=== PATIENT | female | born 1980 | race Caucasian/White ===

== ENCOUNTER → 2017-06-13 07:08 | Outpatient (CLI) | payer BC, SELFPAY ==
[2017-06-13 10:41] LABS: ALB/GLOB Ratio 1.1 RATIO (0.9-2.4); AST(SGOT) 32 U/L (15-37); Alanine Aminotransfer ALT/SGPT 46 U/L (13-56); Albumin, Serum 3.7 g/dL (3.2-5.0); Alkaline Phosphatase 73 U/L (45-117); Anion Gap 10 (5-15); BUN 15 mg/dL (7-18); BUN/Creat Ratio 15.7 RATIO (10-20); Calcium,Total 8.6 mg/dL (8.5-10.1); Chloride 103 mmol/L (98-107); Cholesterol 168 mg/dL (200); Creatinine, Serum 0.96 mg/dL (0.55-1.02); EST Glomerular Filtration Rate 70 mL/min (>60); Est Glom Filt Rate - Afr Amer 85 mL/min (>60); Globulin 3.4 g/dL (2.2-4.2); Glucose 96 mg/dL (74-106); High Density Lipoprotein 50 mg/dL; Protein, Total 7.1 g/dL (6.4-8.2); Sodium Level 140 mmol/L (136-145); Triglycerides 69 mg/dL; Very Low Density Lipoprotein 14 mg/dL (5-40)
[2017-06-14 10:45] LABS: Alpha Antitrypsin Serum 120 mg/dL (90-200)
== END ==
DX: Z13.6 Encounter for screening for cardiovascular disorders (principal); Z83.49 Family history of other endocrine, nutritional and metabolic diseases
CPT/HCPCS: 36415; 80053; 80061; 82103

== ENCOUNTER 2018-03-25 11:59 | Emergency (ER) | payer BC, SELFPAY ==
[2018-03-25 12:00] VITALS: BP 132/76; PULSE 90; RESP 20; TEMP 36.6; O2SAT 100; BMI 25.3
--- NOTE | 2018-03-25 12:19 | EKG12_ITS ---
Test Reason : CP Blood Pressure : / mmHG Vent. Rate : 089 BPM Atrial Rate : 089 BPM P-R Int : 134 ms QRS Dur : 072 ms QT Int : 368 ms P-R-T Axes : 069 083 058 degrees QTc Int : 447 ms Normal sinus rhythm with sinus arrhythmia Right atrial enlargement Borderline ECG Confirmed by BJ ALBA, TOYA ([id number]), editor in chief newspaper THOMPSON GALLAGHER ([id number]) on 03/27/2018 12:01:41 PM Referred By: STEPH Confirmed By:TOYA LORENZO MD
--- NOTE | 2018-03-25 12:19 | RAD_ITS ---
STUDY: X-RAY CHEST REASON FOR EXAM: Female, 37 years old. Panic attacks. TECHNIQUE: Single AP portable view of the chest. COMPARISON: None. FINDINGS: EKG electrodes are seen. The lungs are clear and expanded. Scattered calcified granulomas. There is no demonstrated pleural abnormality. Normal size heart. Normal mediastinum and fredy. Normal visualized pulmonary arteries. Normal visualized aortic arch and descending thoracic aorta. Normal visualized thoracic spine. Normal visualized ribs, clavicles, and shoulders. There is no demonstrated abnormality of the visualized soft tissue structures of the upper abdomen. RAD/Chest 1 View (Portable) IMPRESSION: Normal x-ray examination of the chest. Electronically Signed: Bhargav Villavicencio MD at 13:02 EST Tel [phone], Service support ,
[2018-03-25 12:46] LABS: Absolute Lymphocyte Count 1.65 X10^3/ul (0.83-4.51); Absolute Neutrophil Count 4.1 X10^3/uL (2.0-7.7); Basophil# 0.01 X10^3/uL; Basophil% 0.1 % (0-1); Eosinophils% 1.5 % (0-5); Hematocrit 45.1 % (37-47); Hemoglobin 15.3 g/dl (12.0-15.0); Lymphocyte # 1.65 X10^3/ul (4.0); Lymphocyte % 24.7 % (19-41); Mean Corp Hgb Conc 33.9 g/gl (32-36); Mean Corpuscular Hgb 31.2 pg (27.0-32.0); Mean Corpuscular Volume 91.9 fL (81-99); Mean Platelet Vol. 11.9 fl (6.2-12.0); Monocyte# 0.79 X10^3/uL; Monocyte% 11.8 % (0-10); Neutrophil # 4.13 X10^3/uL (2.7-7.7); Neutrophil % 61.9 % (47-70); POSITIVE COUNT NO; POSITIVE DIFFERENTIAL NO; POSITIVE MORPHOLOGY NO; Platelet Count 222 K/mm3 (150-450); RBC Distribution Width CV 12.8 % (11.6-14.6); RBC Distribution Width SD 42.7 fl (35.1-43.9); Red Blood Count 4.91 M/mm3 (4.2-5.4); White Blood Count 6.7 K/mm3 (4.4-11.0)
[2018-03-25] MEDS: Aspirin 81 MG TAB.CHEW 324 MG PO (12:47)
[2018-03-25] MEDS: 0.9% Normal Saline 1,000 ML 150 ML IV (12:47)
[2018-03-25 13:04] LABS: Anion Gap 6 (5-15); BUN 13 mg/dL (7-18); BUN/Creat Ratio 14.3 RATIO (10-20); Calcium,Total 9.4 mg/dL (8.5-10.1); Chloride 108 mmol/L (98-107); Creatinine, Serum 0.91 mg/dL (0.55-1.02); EST Glomerular Filtration Rate 74 mL/min (>60); Est Glom Filt Rate - Afr Amer 90 mL/min (>60); Estimated Creatinine Clearance 82.31 ml/min; Glucose 104 mg/dL (74-106); Potassium 3.6 mmol/L (3.5-5.1); Sodium Level 138 mmol/L (136-145)
[2018-03-25 13:09] LABS: D-Dimer Quantitative (DVT/PE) < 0.27 FEU/ug/m (0.27-0.49)
--- NOTE | 2018-03-25 13:26 | ED.VISSUMM ---
- ER Visit Summary Date of Service: 03/25/18 Chief Complaint: [] Chest pressure since Friday History of Present Illness: The patient is a 37 F [] patient has really no past history she indicates on Friday she was exerting herself quite a bit on her exercise bicycle equipment she is developed a sense of chest pressure since that time she spoke with her family physicians and asked him in for evaluation. She has no history of GA PE or DVT she does not smoke, she has no history of high cholesterol or other cardiac risk factors. She indicates resting in the bed she just feels a slight sense of chest discomfort primarily if she moves or turns or takes a deep breath. She did not injure herself in any way other than reports she was breathing very hard during exercise activity and this began during that activity Physical Examination: [] 130/80 pulse ox is 100% on room air rest rate 16, General, no distress resting comfortably HEENT is generally unremarkable The neck is supple no adenopathy Cardiovascular, regular rate and rhythm to palpation of the chest reveals no area of pain but she points to the left parasternal region Lungs, clear bilateral Abdomen, soft nontender Extremities, no clubbing cyanosis or edema Neurologic, awake alert answering questions appropriately moving all 4 extremities Test Results: [] Emergency Department Course and Treatment: [] This rhythm the chest x-ray is unremarkable and the laboratory tests are generally unremarkable d-dimer is negative as is the troponin she has been having some discomfort since Friday, We discussed the differential we discussed inpatient versus outpatient management she prefers outpatient management she will take 2 baby aspirin a day [id number] Tylenol nonsteroidals and follow with her outpatient providers return for change in symptoms Treatment Plan: [] Disposition: [] Home stable declined admission Impression: [] Chest pain since Friday etiology unclear This note was generated with [employer] dictation software. It may contain incorrect words, spelling, and punctuation that were not noted in review of the chart prior to signing ED Disposition - Plan for ED Patient: Chief Complaint: Chest Pain Referrals: Care Physician,No Primary [Primary Care Provider] -
--- NOTE | 2018-03-25 13:29 | ED.DCSUM_ITS ---
- ER Visit Summary Date of Service: 03/25/18 Chief Complaint: [] Chest pressure since Friday History of Present Illness: The patient is a 37 F [] patient has really no past history she indicates on Friday she was exerting herself quite a bit on her exercise bicycle equipment she is developed a sense of chest pressure since that time she spoke with her family physicians and asked him in for evaluation. She has no history of [place] PE or DVT she does not smoke, she has no history of high cholesterol or other cardiac risk factors. She indicates resting in the bed she just feels a slight sense of chest discomfort primarily if she moves or turns or takes a deep breath. She did not injure herself in any way other than reports she was breathing very hard during exercise activity and this began during that activity Physical Examination: [] 130/80 pulse ox is 100% on room air rest rate 16, General, no distress resting comfortably HEENT is generally unremarkable The neck is supple no adenopathy Cardiovascular, regular rate and rhythm to palpation of the chest reveals no area of pain but she points to the left parasternal region Lungs, clear bilateral Abdomen, soft nontender Extremities, no clubbing cyanosis or edema Neurologic, awake alert answering questions appropriately moving all 4 extremities Test Results: [] Emergency Department Course and Treatment: [] This rhythm the chest x-ray is unremarkable and the laboratory tests are generally unremarkable d-dimer is negative as is the troponin she has been having some discomfort since Friday, We discussed the differential we discussed inpatient versus outpatient management she prefers outpatient management she will take 2 baby aspirin a day [id number] Tylenol nonsteroidals and follow with her outpatient providers return for change in symptoms Treatment Plan: [] Disposition: [] Home stable declined admission Impression: [] Chest pain since Friday etiology unclear This note was generated with [employer] dictation software. It may contain incorrect words, spelling, and punctuation that were not noted in review of the chart prior to signing ED Disposition - Plan for ED Patient: Chief Complaint: Chest Pain Referrals: Care Physician,No Primary [Primary Care Provider] -
--- NOTE | 2018-03-25 13:29 | ED.DEP ---
ED Disposition - Plan for ED Patient: Chief Complaint: Chest Pain Instructions: ED Chest Pain Atypical Unkn Cause Referrals: Care Physician,No Primary [Primary Care Provider] - Juan Manuel Stewart DO [STAFF PHYSICIAN] -
[2018-03-25 14:17] VITALS: BP 106/71; PULSE 67; RESP 18; O2SAT 100
== END 2018-03-25 14:19 | disposition home or self-care (01) ==
PROVIDERS: Emergency Provider Emergency Medicine
DX: R07.89 Other chest pain (principal); Z79.899 Other long term (current) drug therapy
CPT/HCPCS: 71045; 80048; 84484; 85025; 85379; 93005; 96360; 96361; 99285; J7030; A4216

== ENCOUNTER → 2018-04-17 06:48 | Outpatient (CLI) | payer OTHER, SELFPAY ==
[2018-03-25 12:00] VITALS: BMI 25.3
--- NOTE | 2018-04-17 06:55 | ECHOD_ITS ---
Reason For Study: Abn EKG Procedure This was a 2D Doppler, Color Flow transthoracic echocardiogram. Exam performed in department. Left Ventricle Normal LV size. Left ventricular systolic function is normal. The estimated ejection fraction is 60 %. Normal diastology for age. No regional wall motion abnormalities noted. Right Ventricle Normal RV size. Normal systolic function. Atria Normal left atrium. Normal right atrium. Mitral Valve Normal mitral valve. Tricuspid Valve Normal tricuspid valve. Aortic Valve Normal aortic valve. Trisinus/trileaflet aortic valve. Pulmonic Valve Normal pulmonic valve. Great Vessels Normal aortic root. The pulmonary artery is normal size. Normal inferior vena cava. Pericardium/Pleural No pericardial effusion. MMode/2D Measurements & Calculations LVIDd: 4.5 cm IVSd: 0.84 cm Ao root diam: 3.0 cm LVIDs: 3.0 cm LVPWd: 0.77 cm RVDd: 3.6 cm FS: 34.2 % LAV(MOD-bp): 37.0 ml LVAd ap4: 26.3 cm2 SV(MOD-sp4): 41.6 ml LAV(MOD-bp) Indexed: 20.0 ml/m2 EDV(MOD-sp4): 68.5 ml LAV(MOD-sp2): 45.5 ml EDV(sp4-el): 70.4 ml LAV(MOD-sp4): 30.0 ml LVAs ap4: 14.3 cm2 ESV(MOD-sp4): 26.9 ml ESV(sp4-el): 25.8 ml EF(MOD-sp4): 60.7 % EF(sp4-el): 63.3 % SV(sp4-el): 44.6 ml LA A4 area: 13.4 cm2 LA dimension(2D): 3.2 cm RA A4 area: 12.0 cm2 Doppler Measurements & Calculations MV E max barak: 93.5 cm/sec Lat Peak E' Barak: 22.2 cm/sec Med Peak E' Barak: 10.6 cm/sec MV A max barak: 60.2 cm/sec E/E' lat: 4.2 E/E' med: 8.8 MV E/A: 1.6 Ao V2 max: 116.8 cm/sec LV V1 max: 107.0 cm/sec PA V2 max: 85.9 cm/sec Ao max P.5 mmHg LV V1 max P.6 mmHg Ao V2 mean: 91.3 cm/sec Ao mean P.6 mmHg Ao V2 VTI: 26.9 cm TR max barak: 206.5 cm/sec TR max P.0 mmHg Interpretation Summary Normal LV size. Left ventricular systolic function is normal. The estimated ejection fraction is 60 %. Normal diastology for age. Structurally normal valves. Ordering Physician: RY Blankenship Referring Physician: Don Davies Performed By: Olga Kidd, MORENITA, RVT
--- NOTE | 2018-04-17 13:26 | STRESSREP ---
Stress Test Report Exercise myocardial perfusion stress test. 37-year-old lady with a history of chest pain. Medications none. Stress protocol: Resting EKG demonstrates normal sinus rhythm with a rate of 62 bpm normal intervals are noted resting blood pressure 118/74 mmHg. The patient exercised according to regular Marbin protocol for a total duration of 12 minutes patient completed stage IV of the Marbin protocol the maximum heart rate attained was 166 bpm which was 90% of the maximum predicted heart rate the maximum workload was 13.4 metabolic equivalents. At rest there were no ST or T wave changes noted suggest ischemia peak exercise upsloping ST changes only were noted with no meet the criteria for ischemia. No clinical angina was noted the test was terminated due to leg fatigue. The resting blood pressure was 118/74 with a peak blood pressure 148/80 mmHg rate pressure product was 24,200. Myocardial perfusion protocol. 10.3 mCi of technetium 99m sestamibi was injected at rest. The patient exercised according to regular Marbin protocol for a total duration of 12 minutes at peak exercise 32.8 mCi of technetium 99m sestamibi was injected stress images were obtained stress and rest images were reconstructed and compared in the short axis vertical long horizontal long axis. Gated images were also obtained Perfusion SPECT analysis: Review of the stress images demonstrate normal uptake of tracer noted in all areas of the myocardium. The resting images similarly demonstrate normal uptake of tracer noted in all areas of the myocardium. No areas of reversibility are noted suggest ischemia no previous infarct is noted. Gated SPECT analysis: The gated ejection fraction is noted to be 76%. Conclusion: Normal exercise myocardial perfusion stress test with no evidence of ischemia at a high workload Excellent functional capacity. Preserved ejection fraction.
== END ==
PROVIDERS: Family Provider Family Medicine; PCP Family Medicine; Referring Provider Nurse Practitioner Family; Visit Provider Nurse Practitioner Family
DX: R07.89 Other chest pain (principal); R94.31 Abnormal electrocardiogram [ECG] [EKG]
CPT/HCPCS: 78452; 93017; 93306; A9500; A4216

== ENCOUNTER → 2018-05-08 08:51 | Outpatient (CLI) | payer OTHER, SELFPAY ==
--- NOTE | 2018-05-08 09:05 | BI_ITS ---
MAMMOGRAPHY - BILATERAL DIAGNOSTIC REASON FOR EXAM: Female, 37 years old. Inferior left breast tenderness. PERTINENT HISTORY: Non-contributory. TECHNIQUE: Digital bilateral breast marco a (3D mammographic acquisition) in the CC and MLO projections. 2-D mediolateral oblique (MLO) and craniocaudad (CC) views of both breasts were obtained. CAD: Full Field Digital Mammography with Computer Added Detection was performed. COMPARISON: None. Baseline examination. FINDINGS: Breast Composition: The breasts are heterogeneously dense, which may obscure small masses. There is a 2.6 cm x 2.8 cm nodular density in the deep inferior medial portion of the left breast. This also evidence of a increased density in the left axillary region. This may represent asymmetrical breast tissue as compared to the right side. Correlation with ultrasound of the left breast is recommended for further evaluation. No other significant abnormalities are identified. BI/DIAG MAMM W/CAD, BILAT IMPRESSION: 2.6 cm x 2.8 cm nodular density in the deep inferior medial portion of the left breast as described. This also evidence of breast asymmetry in the axillary region of the left breast. Correlation with ultrasound is recommended. ASSESSMENT CATEGORY: BIRADS Category 0: Incomplete. Need additional imaging evaluation. A letter regarding these results will be sent to the patient by the facility within 30 days. Approximately 10% of breast cancers are not detected by mammography. A normal mammogram should not delay biopsy of a clinically suspicious abnormality. Electronically Signed: Bhargav Villavicencio MD at 10:36 EST Tel [phone], Service support ,
--- NOTE | 2018-05-08 09:06 | US_ITS ---
STUDY: ULTRASOUND BREAST - LEFT REASON FOR EXAM: Female, 37 years old. Fullness of the left breast. TECHNIQUE: Axial and longitudinal images of the LEFT breast were performed with a high resolution ultrasound transducer. COMPARISON: Comparison is made with prior mammogram done earlier today. FINDINGS: LEFT Breast: Ultrasound of the upper outer quadrant and lower inner quadrant were obtained. There is dense fibroglandular tissue. No solid or cystic mass lesion is seen. Incidental note is made of dilated subareolar ducts. US/Breast Complete Unilateral IMPRESSION: Dense fiber glandular tissue. Mildly dilated subareolar ducts. ASSESSMENT CATEGORY: BIRADS Category 2: Benign. A letter regarding these results will be sent to the patient by the facility within 30 days. Electronically Signed: Bhargav Villavicencio MD at 11:22 EST Tel [phone], Service support ,
== END ==
PROVIDERS: Family Provider Family Medicine; PCP Family Medicine
DX: N64.4 Mastodynia (principal)
CPT/HCPCS: 76641; 77062; 77066; G0279

== ENCOUNTER → 2018-11-20 | Outpatient (CLI) | payer OTHER, SELFPAY ==
[2018-06-25 12:42] VITALS: BMI 25.8
--- NOTE | 2018-11-20 13:56 | US_ITS ---
STUDY: ULTRASOUND BREAST - LEFT REASON FOR EXAM: Female, 37 years old. Pain, follow-up ultrasound TECHNIQUE: Axial and longitudinal images of the LEFT breast were performed with a high resolution ultrasound transducer. COMPARISON: 05/08/2018 FINDINGS: LEFT Breast: Four-quadrant ultrasound of the left breast does not demonstrate a suspicious abnormality. Previous study showed mildly dilated ducts but today's examination shows those to have returned to normalcy. There is no sonographic evidence of solid or cystic mass, architectural distortion or shadowing calcifications. US/Breast Complete Unilateral IMPRESSION: No suspicious sonographic findings ASSESSMENT CATEGORY: BIRADS Category 1: Negative. A letter regarding these results will be sent to the patient by the facility within 30 days. Electronically Signed: Moises Young MD at 7:46 EDT , Service support ,
--- NOTE | 2018-11-20 14:06 | BI_ITS ---
MAMMOGRAPHY - UNILATERAL DIAGNOSTIC: LEFT BREAST REASON FOR EXAM: Female, 37 years old. Asymmetric densities PERTINENT HISTORY: Non-contributory. TECHNIQUE: Digital examination. Mediolateral oblique (MLO) and craniocaudad (CC) views of the breast were obtained, along with 3-D tomograms. CAD: CAD was performed on this study. COMPARISON: 05/08/2018 FINDINGS: Breast Composition: The breasts are heterogeneously dense, which may obscure small masses. Previously noted nodular density deep within the medial portion of the left breast persists but has decreased in size since the previous study. It now measures approximately 1 x 1.5 cm. Again further evaluation of the left breast with ultrasound is recommended to assure no underlying lesion is present. No new suspicious findings. No other significant abnormalities are identified. BI/DIAG MAMM W/CAD, UNILAT IMPRESSION: Further ultrasonographic evaluation recommended, as described above. Recall Side: Left Breast ASSESSMENT CATEGORY: BIRADS Category 0: Incomplete. Need additional imaging evaluation. A letter regarding these results will be sent to the patient by the facility within 30 days. FOLLOW-UP RECOMMENDATION: Ultrasound recommended. (I) Approximately 10% of breast cancers are not detected by mammography. A normal mammogram should not delay biopsy of a clinically suspicious abnormality. Electronically Signed: Moises Young MD at 7:52 EDT , Service support ,
== END | disposition home or self-care (01) ==
LOC: OPUS 13:55
PROVIDERS: Family Provider Family Medicine; PCP Family Medicine; Referring Provider Surgery; Visit Provider Surgery
DX: R92.8 Other abnormal and inconclusive findings on diagnostic imaging of breast (principal)
CPT/HCPCS: 76641; 77061; 77065; G0279

== ENCOUNTER 2019-04-30 16:46 | Emergency (ER) | payer OTHER, SELFPAY ==
[2018-06-25 12:42] VITALS: BMI 25.8
[2019-04-30 16:47] VITALS: BP 132/78; PULSE 94; RESP 16; TEMP 36.6; O2SAT 100; BMI 27.7
--- NOTE | 2019-04-30 17:18 | US_ITS ---
STUDY: VENOUS DOPPLER ULTRASOUND - LEFT LOWER EXTREMITY REASON FOR EXAM: Female, 38 years old. LT CALF PAIN - SINCE LAST NIGHT TECHNIQUE: Ultrasound evaluation of the deep vein system to include smallwood-scale imaging and compression was performed. Smallwood-scale imaging and Doppler sonographic evaluation, including duplex spectral analysis and qualitative color flow sonography, was performed. COMPARISON: None. FINDINGS: Common Femoral Vein: Normal compression, spontaneity and augmentation. Normal color Doppler. Common Femoral Vein/Greater Saphenous Junction: Normal compression. Deep Femoral Vein: Normal compression. Femoral Proximal: Normal compression. Femoral Middle: Normal compression, spontaneity and augmentation. Normal color Doppler. Femoral Distal: Normal compression. Popliteal Vein: Normal compression, spontaneity and augmentation. Normal color Doppler. Posterior Tibial Vein: Normal compression. Peroneal Vein: Normal compression. There is no demonstrated deep venous thrombosis. US/Venous Duplex Imag/Limited/Uni IMPRESSION: No demonstrated DVT of the left lower extremity. Electronically Signed: Moises Cannon MD at 18:07 EST , Service support ,
--- NOTE | 2019-04-30 17:56 | ED.VISSUMM ---
- ER Visit Summary Date of Service: 04/30/19 Chief Complaint: [Pain in left calf] History of Present Illness: The patient is a 38 F [close to the emergency department with pain in her left calf that started yesterday. Patient denies any trauma. Patient states she is been more immobile over the last 6 days or so as she has had the flu and has not been real active. Patient denies any trauma to her leg. Patient states she has a friend that is a nurse when she discussed her symptoms with them and was concerned about a blood clot in her leg. Patient has no history of PE or DVT. She denies recent travel or surgery. Patient denies any chest pain or shortness of breath D ordinary.] Physical Examination: [HEENT-PERRLA, EOMI. Cranial nerves II through XII grossly intact. TMs clear. Mucous membranes moist. No adenopathy. Cardiovascular-regular rate and rhythm without murmur or ectopy Lungs-clear to auscultation, chest wall stable without crepitus or subcu emphysema Abdomen-normoactive bowel sounds, soft, nontender, no rebound or rigidity, no peritoneal signs. Extremities-intact ?4, normal range of motion, normal pulses, atraumatic. Left calf-patient has tenderness palpation. Positive Homans sign. There is no edema. There is no ropes or cords palpated. She is neurovascular intact distally.] Test Results: [Venous duplex of the left lower extremity obtained was negative for DVT] Emergency Department Course and Treatment: [] Treatment Plan: [Patient advised to use ibuprofen for discomfort. Patient to follow-up with primary care physician in 5 to 7 days. Patient to return if chest pain, shortness of breath, or conditions worsen anyway.] Disposition: [Discharged home in stable condition.] Impression: [Calf strain] This note was generated with [employer] software. It may contain incorrect words, spelling, and punctuation that were not noted in review of the chart prior to signing ED Disposition - Plan for ED Patient: Referrals: Hermilo Davies MD [Primary Care Provider] -
--- NOTE | 2019-04-30 17:58 | ED.DEP ---
ED Disposition - Plan for ED Patient: Instructions: MUSCLE STRAIN, Extremity Referrals: Hermilo Davies MD [Primary Care Provider] - 5-7 Days
--- NOTE | 2019-04-30 18:06 | ED.RN ---
DISCHARGE INSTRUCTIONS GIVEN TO AND REVIEWED WITH PATIENT, PATIENT DENIES QUESTIONS OR CONCERNS AND VOICES UNDERSTANDING OF DISCHARGE INSTRUCTIONS. PT AMBULATES OUT OF ROOM WITHOUT DIFFICULTY.
== END 2019-04-30 18:07 | disposition home or self-care (01) ==
LOC: ED 17:49
PROVIDERS: Emergency Provider Emergency Medicine; Family Provider Family Medicine; PCP Family Medicine
DX: S86.112A Strain of other muscle(s) and tendon(s) of posterior muscle group at lower leg level, left leg, initial encounter (principal); X58.XXXA Exposure to other specified factors, initial encounter; Y93.9 Activity, unspecified
CPT/HCPCS: 93971; 99282

== ENCOUNTER → 2019-08-30 07:36 | Outpatient (CLI) | payer OTHER, SELFPAY ==
[2019-08-30 10:29] LABS: Free T3 2.7 pg/mL (2.18-3.98); T4 Free Direct 0.87 ng/dL (0.76-1.46); Thyroid Stim Hormone (TSH) 2.15 uIU/mL (0.358-3.74)
[2019-08-31 23:51] LABS: Anti-Thyroglobulin AB < 1.0 IU/mL (0.0-0.9); Thyroglobulin, Serum Qt. 9.1 ng/mL (1.5-38.5); Thyroid Peroxidase AB < 9 IU/mL (0-34)
[2019-09-01 14:08] LABS: Clam <0.10 kU/L (Class 0); Codfish <0.10 kU/L (Class 0); Corn <0.10 kU/L (Class 0); Egg, White <0.10 kU/L (Class 0); Milk (Cow) <0.10 kU/L (Class 0); Peanut <0.10 kU/L (Class 0); SCALLOP <0.10 kU/L (Class 0); Shrimp <0.10 kU/L (Class 0); Soybean <0.10 kU/L (Class 0); Walnut, (Food) <0.10 kU/L (Class 0); Wheat <0.10 kU/L (Class 0)
[2019-09-01 14:33] LABS: SESAME SEED <0.10 kU/L (Class 0)
== END ==
PROVIDERS: Otolaryngology Otolaryngology/Facial Plastic Surgery; PCP Family Medicine; Referring Provider Family Medicine; Visit Provider Family Medicine
DX: Z13.29 Encounter for screening for other suspected endocrine disorder (principal); T78.40XA Allergy, unspecified, initial encounter
CPT/HCPCS: 36415; 84432; 84439; 84443; 84481; 86003; 86376; 86800

== ENCOUNTER → 2020-01-03 08:51 | Outpatient (CLI) | payer OTHER, SELFPAY ==
--- NOTE | 2020-01-03 08:54 | US_ITS ---
STUDY: ULTRASOUND BREAST - LEFT REASON FOR EXAM: Female, 39 years old. Abnormal screening mammogram. TECHNIQUE: Axial and longitudinal images of the LEFT breast were performed with a high resolution ultrasound transducer. # OF IMAGES: 49 COMPARISON: Comparison is made with prior mammogram done earlier in the day as well as prior ultrasound left breast dated 11/20/2018. FINDINGS: LEFT Breast: Stable examination demonstrating dense breast tissue throughout the left breast. No sonographic abnormality is seen. US/Breast Complete Unilateral IMPRESSION: No sonographic abnormality is seen. ASSESSMENT CATEGORY: BIRADS Category 1: Negative. A letter regarding these results will be sent to the patient by the facility within 30 days. Electronically Signed: Bhargav Villavicencio, at 14:44 EDT , Service support ,
--- NOTE | 2020-01-03 08:54 | BI_ITS ---
MAMMOGRAPHY - BILATERAL DIAGNOSTIC REASON FOR EXAM: Female, 39 years old. Left breast tenderness. PERTINENT HISTORY: Non-contributory. TECHNIQUE: Digital bilateral breast marco a (3D mammographic acquisition) in the CC and MLO projections. 2-D mediolateral oblique (MLO) and craniocaudad (CC) views of both breasts were obtained. CAD: Full Field Digital Mammography with Computer Added Detection was performed. COMPARISON: Comparison is made with prior study dated 11/20/2018 and 05/08/2018. FINDINGS: Breast Composition: The breasts are extremely dense, which lowers the sensitivity of mammography. There are no dominant masses or suspicious calcifications. Stable asymmetry of breast tissue were more breast tissue is seen in the axillary region of the left breast as well as along the deep inferior medial aspect of the left breast. No other significant abnormalities are identified. There has been no significant change since the prior study. BI/DIAG MAMM W/CAD, BILAT IMPRESSION: Stable bilateral diagnostic mammogram. Correlation with ultrasound of the left breast is recommended for further evaluation. ASSESSMENT CATEGORY: BIRADS Category 0: Incomplete. Need additional imaging evaluation. A letter regarding these results will be sent to the patient by the facility within 30 days. Approximately 10% of breast cancers are not detected by mammography. A normal mammogram should not delay biopsy of a clinically suspicious abnormality. Electronically Signed: Bhargav Villavicencio, at 10:18 EDT , Service support ,
== END ==
PROVIDERS: PCP Family Medicine; Referring Provider Surgery; Visit Provider Surgery
DX: R92.8 Other abnormal and inconclusive findings on diagnostic imaging of breast (principal); Z98.890 Other specified postprocedural states
CPT/HCPCS: 76641; 77062; 77066; G0279

== ENCOUNTER 2021-05-15 07:23 | Outpatient (CLI) | payer OTHER, SELFPAY ==
[2021-05-15 10:10] LABS: Absolute Lymphocyte Count 1.98 X10^3/uL (0.83-4.51); Absolute Neutrophil Count 4.2 X10^3/uL (2.0-7.7); Basophil# 0.03 X10^3/uL; Basophil% 0.4 % (0-1); Eosinophil# 0.23 X10^3/uL; Eosinophils% 3.2 % (0-5); Hematocrit 40.5 % (37-47); Hemoglobin 13.7 g/dL (12.0-15.0); Lymphocyte # 1.98 X10^3/ul (0.83-4.51); Lymphocyte % 27.9 % (19-41); Mean Corp Hgb Conc 33.8 g/dL (32-36); Mean Corpuscular Hgb 30.5 pg (27.0-32.0); Mean Corpuscular Volume 90.2 fL (81-99); Mean Platelet Vol. 11.2 fl (6.2-12.0); Monocyte# 0.67 X10^3/uL; Monocyte% 9.4 % (0-10); NRBC Flagged by Analyzer 0 % (0-5); Neutrophil # 4.16 X10^3/uL (2.7-7.7); Neutrophil % 58.8 % (47-70); Platelet Count 298 K/mm3 (150-450); RBC Distribution Width CV 12.8 % (11.6-14.6); RBC Distribution Width SD 41.9 fl (35.1-43.9); Red Blood Count 4.49 M/mm3 (4.2-5.4); White Blood Count 7.1 K/mm3 (4.4-11.0)
[2021-05-15 10:25] LABS: Progesterone Level 10.46 ng/mL (See Comment); Vitamin B12 649 pg/mL (211-911); Vitamin D,25 Hydroxy 31.6 ng/mL
[2021-05-15 11:48] LABS: AST(SGOT) 18 U/L (15-37); Alanine Aminotransfer ALT/SGPT 38 U/L (13-56); Albumin, Serum 3.5 g/dL (3.2-5.0); Alkaline Phosphatase 74 U/L (45-117); Anion Gap 9 (5-15); BUN 10 mg/dL (7-18); BUN/Creat Ratio 11.3 RATIO (10-20); Calcium,Total 8.8 mg/dL (8.5-10.1); Chloride 104 mmol/L (98-107); Cholesterol 199 mg/dL (200); Creatinine, Serum 0.88 mg/dL (0.55-1.02); EST Glomerular Filtration Rate 75 mL/min (>60); Est Glom Filt Rate - Afr Amer 91 mL/min (>60); Estradiol 115.4 pg/mL; Follicle Stimulating Hormone 1.9 mIU/mL; Globulin 3.6 g/dL (2.2-4.2); Glucose 82 mg/dL (74-106); High Density Lipoprotein 66 mg/dL; Luteinizing Hormone 0.8 mIU/mL; Protein, Total 7.1 g/dL (6.4-8.2); Sodium Level 141 mmol/L (136-145); Thyroid Stim Hormone (TSH) 1.52 uIU/mL (0.358-3.74); Triglycerides 56 mg/dL; Very Low Density Lipoprotein 11 mg/dL (5-40)
== END 2021-05-15 23:59 | disposition short-term general hospital (02) ==
LOC: MTLAB 07:25
PROVIDERS: PCP Family Medicine; Referring Provider Family Medicine; Visit Provider Family Medicine
DX: Z00.00 Encounter for general adult medical examination without abnormal findings (principal)
CPT/HCPCS: 36415; 80053; 80061; 82306; 82533; 82607; 82670; 83001; 83002; 84144; 84443; 85025

== ENCOUNTER 2021-05-16 10:11 | Outpatient (CLI) | payer OTHER, SELFPAY ==
[2021-05-21 20:30] LABS: Fats, Neutral Normal (.); Fats, Total Normal (.)
== END 2021-05-16 23:59 | disposition short-term general hospital (02) ==
PROVIDERS: PCP Family Medicine; Referring Provider Family Medicine; Visit Provider Family Medicine
DX: R14.0 Abdominal distension (gaseous) (principal); R19.7 Diarrhea, unspecified
CPT/HCPCS: 82274; 82705; 87177; 87209; 87329; 87493; 87506

== ENCOUNTER → 2021-11-28 | Outpatient (CLI) | payer OTHER, SELFPAY ==
--- NOTE | 2021-11-28 08:25 | BI_ITS ---
MAMMOGRAPHY - BILATERAL SCREENING REASON FOR EXAM: Female, 40 years old. Routine annual screening examination. PERTINENT HISTORY: Non-contributory. TECHNIQUE: Digital bilateral breast ernie (3D mammographic acquisition) in the CC and MLO projections. 2-D mediolateral oblique (MLO) and craniocaudad (CC) views of both breasts were obtained. CAD: Full Field Digital Mammography with Computer Added Detection was performed. COMPARISON: Comparison is made with prior study dated 01/03/2020 and 05/08/2018. FINDINGS: Breast Composition: The breasts are extremely dense, which lowers the sensitivity of mammography. There are no dominant masses or suspicious calcifications. Stable asymmetry of breast tissue but more breast tissue is seen in the axillary region on the left breast as compared to 6. No other significant abnormalities are identified. There has been no significant change since the prior study. BI/SCRN MAMM (CAD)W/ERNIE BILAT IMPRESSION: Stable bilateral screening mammogram. Yearly follow-up mammogram recommended. (A) ASSESSMENT CATEGORY: BIRADS Category 2: Benign. A letter regarding these results will be sent to the patient by the facility within 30 days. Approximately 10% of breast cancers are not detected by mammography. A normal mammogram should not delay biopsy of a clinically suspicious abnormality. [id number] Electronically Signed: Bhargav Villavicencio MD at 9:31 EDT ,
== END | disposition home or self-care (01) ==
LOC: OPBI 08:24
PROVIDERS: PCP Family Medicine; Visit Provider Obstetrics & Gynecology
DX: Z12.31 Encounter for screening mammogram for malignant neoplasm of breast (principal)
CPT/HCPCS: 77063; 77067

== ENCOUNTER 2023-09-09 19:57 | Emergency (ER) | payer SELFPAY ==
[2023-09-09 19:59] VITALS: BP 141/94; PULSE 85; RESP 18; TEMP 36.3; O2SAT 100; BMI 28.8
[2023-09-09 20:53] LABS: Bacteria 0 SEEN /hpf (None Seen); Mucous, Urine 0 SEEN /hpf (<or=2+); Red Blood Cells-Urine 0 SEEN /hpf (0-5); White Blood Cells 0 SEEN /hpf (0-5)
[2023-09-09 20:56] LABS: Absolute Lymphocyte Count 2.13 X10^3/uL (0.83-4.51); Absolute Neutrophil Count 5.7 X10^3/uL (2.0-7.7); Basophil# 0.02 X10^3/uL; Basophil% 0.2 % (0-1); Eosinophil# 0.09 X10^3/uL; Hematocrit 38.6 % (37-47); Hemoglobin 13.4 g/dL (12.0-15.0); Lymphocyte # 2.13 X10^3/ul (0.83-4.51); Lymphocyte % 24.5 % (19-41); Mean Corp Hgb Conc 34.7 g/dL (32-36); Mean Corpuscular Hgb 29.7 pg (27.0-32.0); Mean Corpuscular Volume 85.6 fL (81-99); Mean Platelet Vol. 10.7 fl (6.2-12.0); Monocyte# 0.76 X10^3/uL; Monocyte% 8.7 % (0-10); NRBC Flagged by Analyzer 0 % (0-5); Neutrophil # 5.66 X10^3/uL (2.7-7.7); Neutrophil % 65.3 % (47-70); Platelet Count 246 K/mm3 (150-450); RBC Distribution Width CV 12.4 % (11.6-14.6); RBC Distribution Width SD 38.8 fl (35.1-43.9); Red Blood Count 4.51 M/mm3 (4.2-5.4); White Blood Count 8.7 K/mm3 (4.4-11.0)
[2023-09-09 20:56] LABS: Color, Urine Yellow (Yellow); Glucose, Dipstick Normal (Normal); Ketone-Dipstick 15 mg/dl (Negative); Leukocyte Esterase-Dipstick Negative /ul (Negative); Nitrite-Dipstick Negative (Negative); Occult Blood-Urine Negative /ul (Negative); Protein-Dipstick Negative (Negative); Urine Bilirubin Dipstick Negative (Negative); Urine Clarity Sl. Cloudy (Clear); Urine Urobilinogen Normal (Normal)
[2023-09-09 20:59] LABS: Internal QC Validated? YES +Cl - CLEAR BKGD; Pregnancy, Urine Negative Negative
[2023-09-09] MEDS: 0.9% Normal Saline (1000mL) 1,000 ML 1000 ML IV (21:00)
[2023-09-09 21:07] LABS: Amorphous Sediment 1+ PHOS; Squamous Epithelial Cells - UA 0-5 SEEN /hpf (5-10)
[2023-09-09 21:14] LABS: ALB/GLOB Ratio 1.2 RATIO (0.9-2.4); AST(SGOT) 14 U/L (15-37); Alanine Aminotransfer ALT/SGPT 25 U/L (13-56); Albumin, Serum 3.6 g/dL (3.2-5.0); Alkaline Phosphatase 59 U/L (45-117); Amylase 39 U/L (25-115); Anion Gap 7 (5-15); BUN 9 mg/dL (7-18); Chloride 108 mmol/L (98-107); EST Glomerular Filtration Rate 73 mL/min (>60); Est Glom Filt Rate - Afr Amer 88 mL/min (>60); Estimated Creatinine Clearance 93.46 ml/min; Globulin 3.1 g/dL (2.2-4.2); Glucose 111 mg/dL (74-106); Lipase 17 U/L (13-75); Potassium 3.1 mmol/L (3.5-5.1); Protein, Total 6.7 g/dL (6.4-8.2); Sodium Level 137 mmol/L (136-145)
[2023-09-09 21:58] VITALS: BP 145/87; PULSE 81; RESP 14; O2SAT 98
--- NOTE | 2023-09-09 22:53 | EDS_ITS ---
HPI History of Present Illness Chief Complaint: Abd Pain [facility] Medical History (Updated 06/25/18 @ 12:40 by Radha Brown) Anxiety Asthma Home Medications alprazolam 0.5 mg tablet 0.5 mg PO DAILY 03/27/17 [History Last Taken Unknown] bupropion HCl 300 mg 24 hr tablet, extended release 300 mg PO DAILY 03/27/17 [History Last Taken Unknown] cetirizine 5 mg-pseudoephedrine ER 120 mg tablet,extended release,12hr 1 tab PO DAILY 03/25/18 [History Last Taken Unknown] cholecalciferol (vitamin D3) 25 mcg (1,000 unit) tablet 1,000 meq PO DAILY 04/30/19 [History Last Taken Unknown] Allergy/AdvReac Type Severity Reaction Status Date / Time tramadol [From Ultram] AdvReac Mild chest Verified 09/09/23 19:59 tightness, SOB Family History (Updated 06/25/18 @ 12:41 by Radha Brown) Mother Hypertension Sister Lupus Father Cancer skin Surgical History (Updated 06/25/18 @ 12:40 by Radha Brown) History of section Social History (Updated 06/25/18 @ 13:[address] Jaime Hearn MD) Smoking Status: Unknown if ever smoked EXAM Physical Exam Const Vital Signs: 09/09/23 19:59 09/09/23 21:58 09/09/23 22:58 Temperature 97.3 F L Temperature Source Temporal Pulse Rate 85 81 73 Respiratory Rate 18 14 18 Blood Pressure 141/94 H 145/87 H 107/71 Blood Pressure Mean 109 106 83 Pulse Ox 100 98 100 Oxygen Delivery Method Room Air Room Air 09/09/23 23:21 Temperature 97.5 F L Temperature Source Pulse Rate 82 Respiratory Rate 16 Blood Pressure 136/76 H Blood Pressure Mean 96 Pulse Ox 99 Oxygen Delivery Method MDM MDM MDM Narrative Medical decision making narrative: HISTORY OF PRESENT ILLNESS: 42-year-old female presents with abdominal pain. She notes 2 months of bloating followed by several weeks of constipation. She noted 2 weeks ago she started new workout program she was doing pelvic thrusts when she noticed after she de veloped abdominal pain that is 3/10. Nonradiating is located in the right lower quadrant. She follows her primary care physician who ordered an outpatient CT scan. After CT scan she was noted to come to the ED because they found intussusception. She denies any vomiting, last bowel was 2 days ago. No urinary complaints. No history abdominal surgeries REVIEW OF SYSTEMS: Pertinent positives: Abdominal pain Pertinent negatives: Fever, vomiting, chest pain, shortness of breath, urinary complaints, vaginal bleeding or discharge, constipation and diarrhea PHYSICAL EXAM: Nursing triage notes reviewed, Vital signs reviewed Constitutional: please see [facility] HENT: MMM Eyes: Pupils equal round and reactive to light, Extraocular muscles intact Neck: No stridor, no JVD, full neck ROM Lungs: Clear to auscultation, No wheezing or rales. No increased work of breathing, no conversational dyspnea, no accessory muscle use, no nasal flaring. No respiratory distress noted Heart: Regular rate and rhythm, No murmurs, No rubs and No gallops, 2+ distal pulses (radial, femoral, posterior tibial) in all extremities Abdomen: Soft, there is no tenderness, rigidity, rebound or guarding, no obvious peritoneal signs, no palpable pulsatile abdominal masses, no auscultated abdominal bruit : No CVAT Extremities: No edema Neuro: No focal neurological deficits, cranial nerves II through XII intact, 5/5 strength in all extremities. Intact sensation to light touch in all extremities, 2+ reflexes bilateral patella tendons. Normal gait. No ataxia. Skin: No rash or lesions noted MEDICAL DECISION MAKING: Chief Complaint: Concern for intussusception External records reviewed: Prior imaging reviewed: CT scan from today shows evidence of intussusception Factors affecting care: none Social determinants of health: none History obtained from others: none Consults: General surgery (Dr. Beebe), he recommended for repeat CT scan with oral contrast. [facility] Narrative: Patient was hemodynamically stable, afebrile and nontoxic-appearing. Exam was benign with no peritoneal signs. The patient did not look toxic she was in no distress. She had no tenderness on my abdominal exam I considered the following differential diagnosis: Intussusception, endorgan hypoperfusion, systemic inflammation ALL IMAGES (IF OBTAINED) HAVE BEEN PERSONALLY REVIEWED AND INTERPRETED BY MYSELF. CBC without leukocytosis, severe anemia, no thrombocytopenia. BMP with mild hypokalemia otherwise no evidence of metabolic acidosis, endorgan hypoperfusion or acute kidney injury LFTs show no evidence of hepatobiliary pathology. Lipase is wnl indicating no pancreatic inflammation. Urinalysis shows no evidence of urinary inflammation suggestive of UTI Urine test is negative Repeat abdominal exam remained benign. Given lack of concerning symptoms for intussusception, bowel obstruction or perforation. I suspect the imaging findings secondary to an imaging artifact due to peristalsis. There is no signs of GI ischemia with no white count, no elevation anion gap, benign exam, no fever and no tachycardia. I offered the patient a repeat CT scan to definitively rule out intussusception per general surgery recommendations however she stated she would not like to undergo repeat imaging due to risk of radiation and contrast-induced nephropathy. She was alert and orient x 3 had capacity make her medical decisions and chose to be discharged home with close PCP follow-up and strict return precautions. The patient and/or family, caregivers express understanding. The patient and/or family, caregivers agrees with the plan. Shared decision making: I will have a discussion with the patient and or visitors regarding risk/benefits of further testing or admission. They will be made aware of of the risk/benefits inherent in this decision they will be given the opportunity to voice understanding. Total critical care time today provided was at least 0 minutes. This excludes separately billable procedures. Critical care time (if documented) is secondary to the patient having high probability of clinically significant/life threatening deterioration in the patient's condition which required my urgent intervention. Impression: 1. Abdominal pain 2. Hypokalemia 3. Evaluation of abnormal imaging finding Dispo: Discharge home This note was generated with [employer] dictation software. It may contain incorrect words, spelling, and punctuation that were not noted in review of the chart prior to signing. Lab Data Labs: Laboratory Results - last 24 hr 09/09/23 09/09/23 20:40 20:45 WBC 8.7 RBC 4.51 Hgb 13.4 Hct 38.6 MCV 85.6 MCH 29.7 MCHC 34.7 RDW Std Deviation 38.8 RDW Coeff of Emelia 12.4 Plt Count 246 MPV 10.7 Immature Gran % (Auto) 0.300 Neut % (Auto) 65.3 Lymph % (Auto) 24.5 [place] % (Auto) 8.7 Eos % (Auto) 1.0 Baso % (Auto) 0.2 Absolute Neuts (auto) 5.7 Absolute Lymphs (auto) 2.13 Nucleated RBC % 0 Sodium 137 Potassium 3.1 L Chloride 108 H Carbon Dioxide 22.0 Anion Gap 7 BUN 9 Creatinine 0.90 Estim Creat Clear Calc 93.46 Est GFR (MDRD) Af Amer 88 Est GFR (MDRD) Non-Af 73 BUN/Creatinine Ratio 10.0 Glucose 111 H Calcium 9.0 Total Bilirubin 0.80 AST 14 L ALT 25 Alkaline Phosphatase 59 Total Protein 6.7 Albumin 3.6 Globulin 3.1 Albumin/Globulin Ratio 1.2 Amylase 39 Lipase 17 Urine Color Yellow Urine Clarity Sl. Cloudy Urine pH 8.0 Ur Specific [place] 1.010 Urine Protein Negative Urine Glucose (UA) Normal Urine Ketones 15 H Urine Occult Blood Negative Urine Nitrite Negative Urine Bilirubin Negative Urine Urobilinogen Normal Ur Leukocyte Esterase Negative Urine RBC 0 SEEN Urine WBC 0 SEEN Ur Squamous Epith Cells 0-5 SEEN Amorphous Sediment 1+ PHOS Urine Bacteria 0 SEEN Urine Mucus 0 SEEN Urine Test Negative Discharge Plan Triage Chief Complaint: Abd Pain Other Complaint: Abn Labs ED Provider: Kevan Garcia Dx/Rx/DC Orders Instructions: Intussusception Ch Dc Prescriptions: No Action alprazolam 0.5 MG tablet 0.5 mg PO DAILY Patient Comments: TAKE 1 TABLET BY MOUTH EVERY DAY NEEDED FOR ANXIETY, NEEDED ONLY bupropion HCl 300 MG tablet extended release 24 hr 300 mg PO DAILY cetirizine-pseudoephedrine 1 EACH tablet extended release 12 hr 1 tab PO DAILY cholecalciferol (vitamin D3) 1,000 UNIT tablet 1,000 meq PO DAILY Primary Care Provider: Adilson Miller Referrals: Adilson Miller PA [Primary Care Provider] - Activity Restrictions/Additional Instructions: Thank you for trusting us with your care today! I do not think you are suffering from a life-threatening abdominal emergency. I suspect your imaging finding was related to peristalsis (normal movement of your bowel). I suspect your pain is secondary to musculoskeletal strain from st arting new workout routine. Please take Tylenol (2 pills, 650 mg), ibuprofen (2 pills, 400 mg) every 6 hours as needed for pain and fever control. I recommend augmenting her workout routines to decrease load on your abdominal musculature. Please return to the emergency department if your symptoms change or worsen. Specifically if you develop vomiting, fever, severe pain, no bowel movement. Please follow with your primary care physician for further outpatient evaluation and management. Disposition Disposition: Home, Self Care Discharge Date/Time: 09/09/23 23:22
[2023-09-09 22:58] VITALS: BP 107/71; PULSE 73; RESP 18; O2SAT 100
[2023-09-09 23:21] VITALS: BP 136/76; PULSE 82; RESP 16; TEMP 36.4; O2SAT 99
== END 2023-09-09 23:22 | disposition home or self-care (01) ==
PROVIDERS: Emergency Provider Emergency Medicine; PCP Physician Assistant; Visit Provider Emergency Medicine
DX: R10.9 Unspecified abdominal pain (principal); E87.6 Hypokalemia; J45.909 Unspecified asthma, uncomplicated
CPT/HCPCS: 80053; 81001; 81025; 82150; 83690; 85025; 96360; 99284; J7030; A4216

== ENCOUNTER → 2023-09-09 | Outpatient (CLI) | payer SELFPAY ==
--- NOTE | 2023-09-09 17:41 | CT_ITS ---
We are attempting to reach an attending provider to discuss findings. An addendum with communication details will be sent when the communication is complete. STUDY: CT ABDOMEN AND PELVIS WITH CONTRAST REASON FOR EXAM: Female, 42 years old. RLQ PAIN RADIATION DOSAGE (If Supplied By Facility): CTDIvol = ( 15.47 ) mGy, DLP = ( 843.27 ) mGycm TECHNIQUE: Transaxial images were obtained from the dome of the diaphragm to the symphysis pubis without oral contrast. Oral and amp; IV Gastrografin and amp; 100mL Isovue-370 was administered. Sagittal and coronal images were reconstructed. Individualized dose optimization techniques were used for this CT. COMPARISON: None. FINDINGS: The visualized lung bases are unremarkable. The visualized portions of the heart are within normal limits. Normal liver. Normal gallbladder and extrahepatic biliary system. Normal spleen. Normal pancreas. Normal bilateral adrenal glands. Normal right kidney. Normal left kidney. Normal visualized stomach. There is suspicion for an intussusception in the right mid abdominal region, image 52 series 2 and series 602. Normal colon. The appendix is not visualized. Normal abdominal aorta. Normal inferior vena cava. Normal retroperitoneum. Normal urinary bladder. 1.5 cm left ovarian cystic nodule. Normal abdominal wall. Normal osseous structures. CT/Abdomen/Pelvis WITH Contrast IMPRESSION: There is suspicion for an intussusception in the right mid abdominal region. Small left ovarian cystic nodule. Electronically Signed: Christiano Shields DO at 19:45 EDT ,
== END | disposition home or self-care (01) ==
PROVIDERS: PCP Family Medicine; Referring Provider Physician Assistant; Visit Provider Physician Assistant
DX: R10.31 Right lower quadrant pain (principal)
CPT/HCPCS: 74177

== ENCOUNTER → 2024-07-28 | Outpatient (CLI) | payer BC, SELFPAY ==
[2024-07-28 10:46] LABS: Hemoglobin 14.2 g/dL (12.0-15.0); Mean Corp Hgb Conc 33.8 g/dL (32-36); Mean Corpuscular Hgb 30.3 pg (27.0-32.0); Mean Corpuscular Volume 89.6 fL (81-99); Mean Platelet Vol. 11.2 fl (6.2-12.0); Platelet Count 339 K/mm3 (150-450); RBC Distribution Width CV 13.2 % (11.6-14.6); RBC Distribution Width SD 43.5 fl (35.1-43.9); Red Blood Count 4.69 M/mm3 (4.2-5.4); White Blood Count 7.9 K/mm3 (4.4-11.0)
[2024-07-28 11:36] LABS: ALB/GLOB Ratio 1.6 RATIO (0.9-2.4); AST(SGOT) 28 U/L (<=31); Alanine Aminotransfer ALT/SGPT 27 U/L (<=34); Albumin, Serum 4.3 g/dL (3.5-5.0); Alkaline Phosphatase 77 U/L (35-104); Anion Gap 12 (5-15); BUN 7 mg/dL (4-19); BUN/Creat Ratio 7.3 RATIO (10-20); Calcium,Total 9.5 mg/dL (7.6-11.0); Carbon Dioxide 24.1 mmol/L (21.0-32.0); Chloride 103 mmol/L (98-108); Cholesterol 226 mg/dL (<=200); Creatinine, Serum 0.94 mg/dL (0.70-1.20); EST Glomerular Filtration Rate 78 (>60); Globulin 2.7 g/dL (2.2-4.2); Glucose 93 mg/dL (70-99); High Density Lipoprotein 78 mg/dL; Low Density Lipoprotein Calc. 134 mg/dL; Sodium Level 139 mmol/L (133-145); Total Bilirubin 0.63 mg/dL (0.00-1.30); Triglycerides 70 mg/dL; Very Low Density Lipoprotein 14 mg/dL (5-40)
[2024-07-28 11:56] LABS: Vitamin B12 820 pg/mL (180-914); Vitamin D,25 Hydroxy 26.6 ng/mL (30-100)
== END | disposition home or self-care (01) ==
LOC: MTLAB 08:01
PROVIDERS: PCP Physician Assistant; Referring Provider Physician Assistant; Visit Provider Physician Assistant
DX: R53.83 Other fatigue (principal); R10.31 Right lower quadrant pain; Z13.29 Encounter for screening for other suspected endocrine disorder; Z13.220 Encounter for screening for lipoid disorders
CPT/HCPCS: 36415; 80053; 80061; 82306; 82607; 84439; 84443; 85027